=== PATIENT | female | born 1965 | race Caucasian/White ===

== ENCOUNTER 2021-10-27 09:05 | Outpatient (CLI) | payer BC ==
[~2021-10-27] VITALS: Ht 167.4 cm; Wt 100.0 kg
[2021-10-27 09:14] VITALS: BP 141/79
[2021-10-27] MEDS ORDERED: ONDANSETRON 4 MG/2 ML (SDV) Z0FRAN IV PRN (09:45)
[2021-10-27] MEDS ORDERED: diphenhydrAMINE 50 MG/ML INJ (BENADRYL) IV PRN (09:45)
[2021-10-27] MEDS ORDERED: BAMLANIVIMAB 700 MG/ETESEVIMAB 1,400 MG IN NS IV ONE ×3 (09:45)
[2021-10-27] MEDS ORDERED: ACETAMINOPHEN 500 MG TAB (TYLENOL) PO PRN (09:45)
[2021-10-27] MEDS ORDERED: EPINEPHrine INJECTION 1 MG/ML AMP IM PRN (09:45)
[2021-10-27 10:13] VITALS: BP 116/71
[2021-10-27 10:45] VITALS: BP 127/75
== END 2021-10-27 10:48 ==
LOC: INFUSION 09:05
PROVIDERS: ATTEND Registered Nurse
DX: U07.1 COVID-19 (principal)